=== PATIENT | male | born 1965 | race Caucasian/White ===

== ENCOUNTER 2020-11-17 03:10 | Inpatient (IN) | payer OTHER ==
[~2020-11-17] VITALS: Ht 177.8 cm; Wt 86.2 kg
[2020-11-17 03:18] VITALS: BP 164/106
[2020-11-17] MEDS ORDERED: FLAGYL500 M1 PO ×2 (03:21→13:24)
[2020-11-17] MEDS ORDERED: PREVACID30 MG PO (03:21)
[2020-11-17] MEDS ORDERED: ANUSOL-HC30 GM TOP ×2 (03:34→13:24)
[2020-11-17 03:51] LABS: ABSOLUTE EOSINOPHILS 0.3 thou/uL (0.0-0.7); ABSOLUTE LYMPHOCYTES 2.7 thou/uL (0.8-5.3); ABSOLUTE MONOCYTES 0.7 thou/uL (0.0-1.2); ABSOLUTE NEUTROPHILS 3.4 thou/uL (1.6-8.1); BASOPHILS 0.6 %; EOSINOPHILS 3.5 %; HEMATOCRIT 45.9 % (42.0-52.0); HEMOGLOBIN 15.6 gm/dL (14.0-18.0); MCH 30.5 pg (26.0-34.0); MCHC 33.9 g/dL (28.0-37.0); NUCLEATED RBCS 0 /100WBC; PLATELET COUNT* 195 thou/uL (150-400); POLYS 47.9 %; RDW-CV 12.7 % (10.5-14.5); WBC 7.2 thou/uL (4.0-11.0)
[2020-11-17 03:59] LABS: CALCIUM 8.6 mg/dL (8.5-10.1); CREATININE 0.8 mg/dL (0.6-1.3); POTASSIUM 4.2 mmol/L (3.5-5.1)
[2020-11-17 04:03] LABS: ALBUMIN 4.2 g/dL (3.4-5.0); TOTAL BILIRUBIN 0.4 mg/dL (<0.1-1.0)
[2020-11-17] MEDS ORDERED: NORCO 5-325 TA1 EAC2 PO (04:52)
[2020-11-17] MEDS ORDERED: DULCOLAX STOOL100 M1 PO (04:52)
[2020-11-17 06:00] VITALS: BP 132/77
[2020-11-17 06:11] VITALS: BP 128/72
[2020-11-17 08:00] VITALS: BP 128/76
[2020-11-17] MEDS ORDERED: HYDROCODON-ACE1 EAC7 PO (12:10)
[2020-11-17 12:21] VITALS: BP 128/76
[2020-11-17] MEDS ORDERED: CIPRO500 M1 PO (13:24)
[2020-11-17 15:11] VITALS: BP 128/76
--- NOTE | 2020-11-17 15:11 | NUR ---
PATIENT DISCHARGED FROM UNIT AT 1450. ALERT AND ORIENTED X 4. VITAL SIGNS STABLE ON ROOM AIR. AMBULATING IN ROOM INDEPENDENTLY. IV DISCONTINUED. PAIN BEING MANAGED WITH PO MEDICATION. DENIES NAUSEA AT THIS TIME. MEDICATION INFORMATION, SCRIPTS, AND DISCHARGE INSTRUCTIONS GIVEN TO PATIENT. LEFT WITH ALL BELONGINGS. PATIENT LEFT WITH GIRLFRIENDS VIA CAR.
[2020-11-18 02:08] LABS: GLYCOHEMOGLOBIN (HGB A1C) 6.8 % (4.8-5.6)
== END 2020-11-17 14:50 | disposition home or self-care (01) | DRG 392 ==
LOC: M.ERS 03:10 → M.TBA-ER 05:01 → M.3W 06:00
PROVIDERS: Emergency Medicine Emergency Medical Services; ADMIT Internal Medicine; ATTEND Internal Medicine
DX: K57.32 Diverticulitis of large intestine without perforation or abscess without bleeding (principal); Z88.0 Allergy status to penicillin; K64.4 Residual hemorrhoidal skin tags; R73.9 Hyperglycemia, unspecified; Z20.828 Contact with and (suspected) exposure to other viral communicable diseases; Z87.891 Personal history of nicotine dependence

== ENCOUNTER 2021-10-04 05:52 | Emergency (ER) | payer OTHER ==
[~2021-10-04] VITALS: Ht 177.8 cm; Wt 86.2 kg
[~2021-10-04 05:52] MED LIST: ANUSOL-HC30 GM TOP; CIPRO500 M1 PO; DULCOLAX STOOL100 M1 PO; FLAGYL500 M1 PO; HYDROCODON-ACE1 EAC7 PO; NORCO 5-325 TA1 EAC2 PO; PREVACID30 MG PO
[2021-10-04] MEDS ORDERED: TORADOL 10 MG T10 MG PO (06:11)
[2021-10-04 06:17] LABS: URINE BILIRUBIN NEGATIVE (Negative); URINE BLOOD 1+ (Negative); URINE CLARITY CLEAR; URINE COLOR YELLOW; URINE GLUCOSE-RANDOM NEGATIVE (Negative); URINE KETONES NEGATIVE (Negative); URINE LEUKOCYTES-REFLEX NEGATIVE (Negative); URINE NITRITE-REFLEX NEGATIVE (Negative); URINE PROTEIN NEGATIVE (Negative); URINE SPECIFIC GRAVITY 1.025 (1.005-1.030); URINE UROBILINOGEN 0.2 E.U./dl (0.2-1.0)
[2021-10-04 06:25] LABS: ABSOLUTE EOSINOPHILS 0.1 thou/uL (0.0-0.7); ABSOLUTE LYMPHOCYTES 2.6 thou/uL (0.8-5.3); ABSOLUTE MONOCYTES 0.6 thou/uL (0.0-1.2); ABSOLUTE NEUTROPHILS 2.1 thou/uL (1.6-8.1); BASOPHILS 0.8 %; EOSINOPHILS 2.7 %; HEMOGLOBIN 15.5 gm/dL (14.0-18.0); MCH 30.9 pg (26.0-34.0); MCHC 33.7 g/dL (28.0-37.0); MCV 91.9 fL (80.0-100.0); MONOCYTES 10.3 %; MPV 8.1 fl. (7.2-11.1); NUCLEATED RBCS 0 /100WBC; PLATELET COUNT* 183 thou/uL (150-400); POLYS 39.2 %; RDW-CV 12.9 % (10.5-14.5); WBC 5.5 thou/uL (4.0-11.0)
[2021-10-04 06:31] LABS: BACTERIA-REFLEX None Seen /HPF (None Seen); CASTS None Seen /LPF (None Seen); CRYSTALS None Seen /LPF (None Seen); MUCUS None Seen strn/LPF (None Seen); SQUAMOUS NONE SEEN /LPF (0-3); URINE RBC 3-10 Few /HPF (0-2); URINE WBC-REFLEX None Seen /HPF (0-5)
[2021-10-04 06:35] LABS: CALCIUM 8.3 mg/dL (8.5-10.1); CREATININE 0.9 mg/dL (0.6-1.3); POTASSIUM 4.1 mmol/L (3.5-5.1)
[2021-10-04 06:40] LABS: AMP/METHAMP Negative (Negative); BARBITURATES Negative (Negative); BENZODIAZEPINES Negative (Negative); COCAINE Negative (Negative); METHADONE Negative (Negative); OPIATES Negative (Negative); THC Negative (Negative)
[2021-10-04 06:59] LABS: PCP Negative (Negative)
[2021-10-04] MEDS ORDERED: HYDROCODON-ACE1 EAC7 PO (08:01)
[2021-10-04] MEDS ORDERED: FLOMAX0.4 MG PO (08:01)
[2021-10-04] MEDS ORDERED: DULCOLAX STOOL100 M1 PO (08:01)
[2021-10-04] MEDS ORDERED: ZOFRAN ODT4 MG DISSOLVE (08:01)
[2021-10-04 08:28] VITALS: BP 127/50
== END 2021-10-04 08:29 | disposition home or self-care (01) ==
LOC: M.ERS 05:52
PROVIDERS: Emergency Medicine
DX: N20.0 Calculus of kidney (principal); Z79.899 Other long term (current) drug therapy; Z88.0 Allergy status to penicillin